=== PATIENT | male | born 1945 | race Caucasian/White ===

== ENCOUNTER 2020-09-19 13:23 | Outpatient (CLI) | payer OTHER ==
[~2020-09-19 13:23] MED LIST: AMLODIPINE BESY10 MG PO; AVALIDE 300-12.1 TAB PO; CLONAZEPAM0.5 MG/TAB PO; ECOTRIN325 MG PO; FLOVENT13 G1 IH; METOPROLOL SUCC25 MG PO; METOPROLOL SUCC50 MG PO; SIMVASTATIN40 MG PO; SINGULAIR10 MG PO
== END 2020-09-19 13:24 | disposition home or self-care (01) ==
LOC: PPH VACUNA 13:23
PROVIDERS: ATTEND Emergency Medicine Pediatric Emergency Medicine
DX: Z23 Encounter for immunization (principal)

== ENCOUNTER 2022-04-03 14:02 | Inpatient (IN) | payer OTHER ==
[~2022-04-03] VITALS: Ht 152.4 cm; Wt 59.0 kg
[2022-04-03] MEDS ORDERED: NEURONTIN800 MG PO (14:30)
[2022-04-03] MEDS ORDERED: FAMOTIDINE20 MG/2 M1 IV (14:30)
[2022-04-03] MEDS ORDERED: TAMS0.4C PO (14:31)
[2022-04-03] MEDS ORDERED: ALPHA LIPOIC A600 MG PO (14:31)
[2022-04-03] MEDS ORDERED: ZOCOR40 MG PO (14:32)
[2022-04-03] MEDS ORDERED: SINGULAIR 10MG10 MG PO (14:33)
[2022-04-03] MEDS ORDERED: CALTRATE 600+D1 EACH PO (14:33)
[2022-04-03] MEDS ORDERED: NORVASC2.5 MG PO (14:34)
[2022-04-03] MEDS ORDERED: HYDRALAZINE HCL50 MG PO (14:34)
[2022-04-03] MEDS ORDERED: FUROSEMIDE20 MG PO (14:34)
--- NOTE | 2022-04-03 14:35 | NUR ---
SE RECIBE PACIENTE ALERTA, ORIENTADO X 3 ESFERAS LLEGA EN AMBULANCIA ACOMPANADO DE FAMILIAR Y PARAMEDICOS REFIEREN TRAER POR DEBILIDAD . PTE DE DR. MALU COX. SE ESTIMAN S/V SE REALIZA EKG, SE PRESENTA A , SE UBICA EN AREA DE OBSERVACION CAMA # 14 CON BARRANDAS ELEVADAS , SE CONECTA A MONITOR CARDIACO. SE ORIENTA A FAMILIAR DE NECESITAR AYUDA NOTIFICAR. REFIERE ENTENDER.
--- NOTE | 2022-04-03 14:42 | NUR ---
PTE CON NEFROCTOMIA LADO YAMILETH.
--- NOTE | 2022-04-03 14:49 | NUR ---
SE RECIBE PTE MASCULINO DE 76 YRS ALERTA CONCIENTE Y TRANQUILO . PTE LLEGA EN AMBULANCIA . SE LE CAROL S/V LA CIUAL SE DOCUMENTA. ES EVALUADO POR EL [facility] B[facility]KE QUIEN ORDENA TRATAMIENTO AL CUAL SE EJECUTA POR MS.LOPEZ RAMIREZ.
== END 2022-04-16 07:17 | disposition home or self-care (01) | DRG 872 ==
LOC: ER 14:02 → MEDJ 20:25
PROVIDERS: ADMIT Internal Medicine Hematology & Oncology; ATTEND Internal Medicine Hematology & Oncology
PROC: 8E0ZXY6 Isolation (ICD-10-PCS; 2022-04-03)
PROC: 02HV33Z Insertion of Infusion Device into Superior Vena Cava, Percutaneous Approach (ICD-10-PCS; 2022-04-04)
PROC: 0T9430Z Drainage of Left Kidney Pelvis with Drainage Device, Percutaneous Approach (ICD-10-PCS; principal; 2022-04-09)
DX: A41.51 Sepsis due to Escherichia coli [E. coli] (principal); N39.0 Urinary tract infection, site not specified; E44.0 Moderate protein-calorie malnutrition; C79.51 Secondary malignant neoplasm of bone; C78.00 Secondary malignant neoplasm of unspecified lung; Z16.12 Extended spectrum beta lactamase (ESBL) resistance; N13.5 Crossing vessel and stricture of ureter without hydronephrosis; C61 Malignant neoplasm of prostate; D63.0 Anemia in neoplastic disease; D63.8 Anemia in other chronic diseases classified elsewhere; I13.10 Hypertensive heart and chronic kidney disease without heart failure, with stage 1 through stage 4 chronic kidney disease, or unspecified chronic kidney disease; N18.2 Chronic kidney disease, stage 2 (mild); I25.10 Atherosclerotic heart disease of native coronary artery without angina pectoris; R53.81 Other malaise; Z93.6 Other artificial openings of urinary tract status; Z66 Do not resuscitate; B96.20 Unspecified Escherichia coli [E. coli] as the cause of diseases classified elsewhere

== ENCOUNTER → 2022-06-08 | Emergency (ER) | payer OTHER ==
[~2022-06-08] VITALS: Ht 177.8 cm; Wt 72.6 kg
[~2022-06-08] MED LIST changes: +ALPHA LIPOIC A600 MG PO; +CALTRATE 600+D1 EACH PO; +FAMOTIDINE20 MG/2 M1 IV; +FUROSEMIDE20 MG PO; +HYDRALAZINE HCL50 MG PO; +NEURONTIN800 MG PO; +NORVASC2.5 MG PO; +SINGULAIR 10MG10 MG PO; +TAMS0.4C PO; +ZOCOR40 MG PO
== END | disposition home or self-care (01) ==
LOC: ER 01:11
DX: R33.8 Other retention of urine (principal); C61 Malignant neoplasm of prostate; Z88.0 Allergy status to penicillin; Z91.013 Allergy to seafood

== ENCOUNTER 2022-06-14 14:38 | Inpatient (IN) | payer OTHER ==
--- NOTE | 2022-06-14 14:48 | NUR ---
SE RECIBE PTE ALERTA Y ORIENTADO X3,ACOMPANADO POR FAMILAR ELPTE LO REFIERE EL DR.MORALES COX TIENE UN CANCER CON METATASTASIS EN LA PROSTATA ,REFIERE QUE TIENE RUDOLPH NEFROSTOMIA REFIERE QUE TIENE EL CATETER ESTA TAPADO.
--- NOTE | 2022-06-14 17:02 | NUR ---
PTE LLEGA CON ORDENES DE ADMISION DIRECTA, ADMISION TRABAJADA POR MR Aditya MAZA.
[2022-06-25] MEDS ORDERED: CLONAZEPAM0.5 MG PO (17:59)
[2022-06-25] MEDS ORDERED: GABAPENTIN800 MG PO (18:00)
[2022-06-25] MEDS ORDERED: OXYC1TAB9 PO (18:01)
[2022-06-25] MEDS ORDERED: INTESTINEX680 M1 PO (18:02)
== END 2022-06-25 18:58 | disposition home or self-care (01) | DRG 699 ==
LOC: ER 14:38 → SURG 16:18
PROVIDERS: ADMIT Internal Medicine Hematology & Oncology; ATTEND Internal Medicine Hematology & Oncology
PROC: 0T25X0Z Change Drainage Device in Kidney, External Approach (ICD-10-PCS; principal; 2022-06-14)
PROC: 8E0ZXY6 Isolation (ICD-10-PCS; 2022-06-14)
PROC: 30233N1 Transfusion of Nonautologous Red Blood Cells into Peripheral Vein, Percutaneous Approach (ICD-10-PCS; 2022-06-16)
DX: T83.092A Other mechanical complication of nephrostomy catheter, initial encounter (principal); C78.00 Secondary malignant neoplasm of unspecified lung; C79.51 Secondary malignant neoplasm of bone; N39.0 Urinary tract infection, site not specified; K52.1 Toxic gastroenteritis and colitis; E46 Unspecified protein-calorie malnutrition; Z68.1 Body mass index [BMI] 19.9 or less, adult; T47.4X5A Adverse effect of other laxatives, initial encounter; C61 Malignant neoplasm of prostate; N13.5 Crossing vessel and stricture of ureter without hydronephrosis; G89.3 Neoplasm related pain (acute) (chronic); E86.0 Dehydration; D63.0 Anemia in neoplastic disease; I11.9 Hypertensive heart disease without heart failure; I25.10 Atherosclerotic heart disease of native coronary artery without angina pectoris; B96.1 Klebsiella pneumoniae [K. pneumoniae] as the cause of diseases classified elsewhere; Z74.01 Bed confinement status; E83.52 Hypercalcemia